=== PATIENT | female | born 1955 | race Asian ===

== ENCOUNTER 2020-10-20 07:48 | Outpatient (REF) | payer BC, SELFPAY ==
--- NOTE | 2020-10-23 11:46 | MHC.AU.P13 ---
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 Does patient feel they have a hearing loss?: Yes If Yes, Which Ear?: Both Ears When Was Hearing Difficulty First Noticed?: Approximately one year ago Has hearing been tested previously?: No Hearing Handicap Inventory: HHIE SCORE: 4 Based on HHIE score, patient has: No perceived hearing handicap Ear History: Family History of Hearing Loss?: Yes: Father Medical History: Medical History: Thyroid Disease Medication List: Levothyroxine, Simvastatin, Vitamin B-12, Vitamin D3 Otoscopy: Right Ear: Unremarkable Left Ear: Unremarkable Tympanometry: Tympanometry performed due to: To assess integrity of the middle ear system Right Ear: Normal Middle Ear System (Type A) Left Ear: Normal Middle Ear System (Type A) Otoacoustic Emissions Frequency Range Used: 1.6-8 kHz Right Ear Results: Absent Emissions Analysis: Reduced/Absent emissions suggest cochlear dysfunction Left Ear Results: Reduced at 1600 Hz Absent 9891-3117 Hz Analysis: Reduced/Absent emissions suggest cochlear dysfunction Hearing Evaluation: Transducer(s) Used: Insert Earphones Bone Conduction Method: Conventional Audiometry Stimuli Used: Pure Tones Right Ear: Description of Hearing: Normal hearing thresholds at 250 and 500 Hz dropping to a moderate high frequency sensorineural hearing loss Left Ear: Description of Hearing: Normal hearing thresholds at 250 and 500 Hz dropping to a moderate high frequency sensorineural hearing loss Speech Recognition Threshold (SRT): Method Used: Monitored Live Voice Stimuli Used: Spondee Words Right Ear: 20 dB HL Left Ear: 20 dB HL Word Discrimination: Method: Recorded Lists Word Lists Used: NU-6 Right Ear: 75% at 60 dB HL Left Ear: 75% at 60 dB HL Comparison: Compared to the most recent evaluation: N/A Recommendations: Audiological re-evaluation in one year. Trial with amplification is recommended. Patient does not feel they are ready for amplification at this time. Discussed some communication strategies to use when needed. Sending a reminder card for one year audiologic re-evaluation to monitor. Diagnosis: Primary Diagnosis: H90.3 Bilateral Sensorineural Hearing Loss Services Performed: Comprehensive Audiological Evaluation (CPT 34463) Diagnostic Otoacoustic Emissions (CPT 60113, 26+TC) Tympanometry (CPT 71786) Signature: Provider: Eleonora Murphy, CCC-A
== END 2020-10-20 07:49 | disposition home or self-care (01) ==
LOC: HO.SH 07:48
PROVIDERS: Visit Provider Internal Medicine
DX: H90.3 Sensorineural hearing loss, bilateral (principal)
CPT/HCPCS: 92557; 92567; 92588

== ENCOUNTER 2021-01-05 06:55 | Day surgery (SDC) | payer BC, SELFPAY ==
[2021-01-01 10:01] VITALS: BMI 26.9
--- NOTE | 2021-01-03 12:16 | P.CONAN_ITS ---
Documented by User: Sandhya Preston 01/03/21 12:17 HPI - Anesthesia Eval Consult details Narrative: 65yo F for Colonoscopy [facility] Past Medical History Medical History Elevated cholesterol Thyroid disease Surgical History Surgical History H/O colonoscopy Social History Social History Smoking Status: Never smoker Use of substances other than those prescribed or required for medical reasons: No Are you DNR?: No Advance Directives: No Advance Directives Information Provided: Yes Meds Allergies Allergy/AdvReac Type Severity Reaction Status Date / Time No Known Allergies Allergy Verified 01/01/21 10:00 Home Medications Medication Instructions Recorded Confirmed Last Taken Type levothyroxine [Euthyrox] 100 mcg PO DAILY 01/01/21 01/01/21 01/05/21 History simvastatin 20 mg PO BEDTIME 01/01/21 01/01/21 Unknown History Exam Exam Date and Time: January 03, 2021 1216 Height,Weight and Vital Signs: Height 5 ft 7 in Weight 78.018 kg Assessment and Plan Assessment Anesthesia Assessment: Chart Reviewed Documented by User: Gómez Renteria 01/05/21 08:04 [facility] Past Medical History Medical History Elevated cholesterol Thyroid disease Surgical History Surgical History H/O colonoscopy Social History Social History Smoking Status: Never smoker Use of substances other than those prescribed or required for medical reasons: No Are you DNR?: No Advance Directives: No Advance Directives Information Provided: Yes Meds Allergies Allergy/AdvReac Type Severity Reaction Status Date / Time No Known Allergies Allergy Verified 01/01/21 10:00 Home Medications Medication Instructions Recorded Confirmed Last Taken Type levothyroxine [Euthyrox] 100 mcg PO DAILY 01/01/21 01/01/21 01/05/21 History simvastatin 20 mg PO BEDTIME 01/01/21 01/01/21 Unknown History Exam Airway Mallampati Class: II TM Dist: >3cm Neck ROM: Full Loose/Missing/Broken Teeth: No (Poor dentition) Heart: rrr +s1s2 Lungs: cta b/l Assessment and Plan Assessment Anesthesia Assessment: Anesthesia Plan Discussed, PAT Visit and Chart Reviewed Final Anesthetic Review NPO: Yes ASA Class: II Final Preanesthetic Review: No Changes in Pt Med Stat, Meds/Allgs Chart Reviewed, Consent Obtained/Reviewed and Anes Risks/Benef Reviewed Patient Risk: Low Procedure Risk: Low Assessment/Block/Sedation in SS: Assess/Block/Sedation-SS Anesthetic Plan Anesthetic Plan: MAC: and Agree w/ Assess. and Plan Disposition: Standard PACU
[2021-01-05 07:22] VITALS: BP 104/85; PULSE 80; RESP 16; TEMP 36.7; O2SAT 95
[2021-01-05] MEDS: Lactated Ringers 1,000 ML 100 ML IVCONT (07:33)
[2021-01-05 09:38] VITALS: BP 80/44; PULSE 70; RESP 16; TEMP 36.2; O2SAT 97
--- NOTE | 2021-01-05 09:38 | P.BOP_ITS ---
Brief Operative Note Date of Service: 01/05/21 Pre-op diagnosis: Screening Post-op diagnosis: other (Colon polyp) Procedure: Colonoscopy to the cecum and TI with biopsy and removal of polyp Surgeon: Kishore Frias Anesthesia: MAC Was an Controls Technician used for this Procedure?: No Estimated blood loss (mL): 3.0 Pathology: other (A. Polyp at 50cm) Condition: stable Disposition: PACU
[2021-01-05 09:53] VITALS: BP 115/70; PULSE 64; RESP 18; O2SAT 99
--- NOTE | 2021-01-05 11:03 | OP_ITS ---
SURGEON: Kishore Frias MD INDICATIONS: The patient presents for evaluation of colorectal cancer screening. Full consent has been obtained from her for this, including risks of bleeding and perforation. PREOPERATIVE DIAGNOSIS: Colorectal cancer screening. POSTOPERATIVE DIAGNOSIS: PROCEDURE PERFORMED: Colonoscopy to the cecum and terminal ileum with biopsy and removal of polyp. ESTIMATED BLOOD LOSS: COMPLICATIONS: ANESTHESIA: Monitored anesthesia care. ASSISTANTS: SPECIMENS: POSTOPERATIVE DIAGNOSES: Colorectal cancer screening, small colon polyp, mild diverticulosis, internal hemorrhoids. DESCRIPTION OF PROCEDURE: The patient was placed in the left lateral decubitus position. The digital rectal exam revealed no abnormalities. The Olympus video pediatric colonoscope was entered into the rectum and advanced easily to the cecum. Once in the cecum, I did identify normal-appearing cecal pouch with appendiceal orifice and a normal-appearing ileocecal valve. The terminal ileum was cannulated and appeared normal. The scope was withdrawn back in the colon. The entire cecum and ileocecal valve appeared normal. The scope was slowly withdrawn assessing all mucosal surfaces carefully. Preparation was excellent. At 50 cm, was an approximately 4 mm polyp, which was biopsied and completely removed with cold biopsy forceps. I did not visualize any other polyps, colitis, nor angiodysplasia. There was a mild amount of sigmoid diverticulosis. In the rectum, scope was retroflexed visualizing internal hemorrhoids, but no other pathology. The rectal mucosa appeared normal. The scope was straightened out and withdrawn from the patient. She tolerated the procedure well and was returned to the recovery area in stable condition. IMPRESSION: 1. Small colon polyp, status post biopsy and removal. 2. Mild diverticulosis. 3. Small internal hemorrhoids. PLAN: The results of the biopsies will be checked. If this is a tubular adenoma, I would recommend a followup colonoscopy in 5 years. If it is only hyperplastic, I would recommend a followup colonoscopy in 10 years. MD MIGUELITO Kilpatrick/CHENGL / [id number]
== END 2021-01-05 11:00 | disposition home or self-care (01) ==
PROVIDERS: PCP Internal Medicine; Visit Provider Internal Medicine
PROC: 0DJD8ZZ Inspection of Lower Intestinal Tract, Via Natural or Artificial Opening Endoscopic (ICD-10-PCS; CPT 45378; principal; 2021-01-05 08:20)
DX: Z12.11 Encounter for screening for malignant neoplasm of colon (principal); K51.40 Inflammatory polyps of colon without complications; K57.30 Diverticulosis of large intestine without perforation or abscess without bleeding; K64.8 Other hemorrhoids; Z79.899 Other long term (current) drug therapy
CPT/HCPCS: 45380; 88305

== ENCOUNTER 2021-04-26 14:11 | Outpatient (REF) | payer BC, SELFPAY ==
--- NOTE | ~2021-04-26 | MM_ITS ---
EXAMINATION: MM SCREENING DIGITAL BREAST TOMOSYNTHESIS, BILATERAL CLINICAL INFORMATION: Screening. Asymptomatic. The lifetime risk of breast cancer based on the Tyrer-Cuzick Model is 4.1%. COMPARISON: Mammography: April 21, 2020 and studies dating back to January 10, 2010 TECHNIQUE: Digital breast tomosynthesis is performed in both the craniocaudal and mediolateral oblique views along with computer-aided detection (CAD). Synthesized 2D images are generated from the tomosynthesis. FINDINGS: The breasts are extremely dense, which lowers the sensitivity of mammography (ACR BI-RADS breast composition Category d). There are no significant masses, abnormal calcifications, or other abnormalities. MM/MM tomosynthesis screening BI IMPRESSION: There are no significant changes from prior study. ASSESSMENT: BI-RADS 1: Negative RECOMMENDATION: Routine annual mammography screening. This patient's information was entered into a reminder system with a target due date for their next mammogram.
== END 2021-04-26 14:12 | disposition home or self-care (01) ==
LOC: HO.MAMMO 14:11
PROVIDERS: PCP Internal Medicine; Visit Provider Internal Medicine
DX: Z12.31 Encounter for screening mammogram for malignant neoplasm of breast (principal)
CPT/HCPCS: 77063; 77067

== ENCOUNTER 2022-01-29 08:23 | Outpatient (REF) | payer BC, SELFPAY ==
--- NOTE | 2022-01-29 14:20 | MHC.AU.ANR ---
Adult Audiological Evaluation Date of Visit: 01/29/22 Reason for Appointment: Audiological re-evaluation to determine if there has been a change in hearing sensitivity. She has a known bilateral, sensorineural hearing loss, and though hearing aids were recommended, she does not feel she is ready for hearing aid use yet. 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 She notes that in Spring 2020, shortly following her last visit here, she began to have a blocked sensation in her left ear. She had it treated by ENT with medication and it was determined that allergies were the likely cause. This feeling of blockage has since cleared up and has not returned. Does patient feel they have a hearing loss?: Yes If Yes, Which Ear?: Both Ears When Was Hearing Difficulty First Noticed?: ~2 years ago Has hearing been tested previously?: Yes [place] [facility] [place] hearing from 250-500 Hz, dropping to a moderate high-frequency sensorineural hearing loss. Ear History: Family History of Hearing Loss?: Yes: Father Medical History: Medical History: Thyroid Disease Medication List: Simvastatin, Levoxyl, Cyanocobalamin, Vitamin D Otoscopy: Right Ear: Unremarkable Left Ear: Unremarkable Tympanometry: Tympanometry performed due to: To assess integrity of the middle ear system Right Ear: Normal Middle Ear System (Type A) Left Ear: Normal Middle Ear System (Type A) Hearing Evaluation: Transducer(s) Used: Insert Earphones, Bone Conduction Method: Conventional Audiometry Stimuli Used: Pure Tones Right Ear: Description of Hearing: Normal hearing from 250-500 Hz, sloping to a mild to moderate sensorineural hearing loss from 750-8000 Hz. Left Ear: Description of Hearing: Normal hearing from 250-500 Hz, sloping to a mild to moderately-severe sensorineural hearing loss from 750-8000 Hz. Speech Recognition Threshold (SRT): Method Used: Monitored Live Voice Stimuli Used: Spondee Words Right Ear: 20 dBHL Left Ear: 20 dBHL Word Discrimination: Method: Recorded Lists Word Lists Used: NU-6 Right Ear: 84% at 65 dBHL Left Ear: 80% at 65 dBHL Comparison: Compared to the most recent evaluation: Threshold worsened by 15 dBHL at 2000 Hz in the left ear. All other thresholds remain overall stable. Recommendations: Audiological re-evaluation in one year. Trial with amplification is recommended. Patient does not feel they are ready for amplification at this time. Diagnosis: Primary Diagnosis: H90.3 Bilateral Sensorineural Hearing Loss Services Performed: Services Performed: Comprehensive Audiological Evaluation (CPT 01225) Tympanometry (CPT 81391) Signature: Provider: Eleonora Ivory, CCC-A
== END 2022-01-29 08:24 | disposition home or self-care (01) ==
LOC: HO.SH 08:23
PROVIDERS: Visit Provider Internal Medicine
DX: H90.3 Sensorineural hearing loss, bilateral (principal)
CPT/HCPCS: 92557; 92567

== ENCOUNTER 2022-05-11 07:42 | Outpatient (REF) | payer BC, SELFPAY ==
--- NOTE | ~2022-05-11 | MM_ITS ---
EXAMINATION: MM SCREENING DIGITAL BREAST TOMOSYNTHESIS, BILATERAL CLINICAL INFORMATION: Screening. Asymptomatic. The lifetime risk of breast cancer based on the Tyrer-Cuzick Model is 5%. COMPARISON: Mammography: 04/26/2021, 04/21/2020, 04/16/2019 TECHNIQUE: Digital breast tomosynthesis is performed in both the craniocaudal and mediolateral oblique views along with computer-aided detection (CAD). Synthesized 2D images are generated from the tomosynthesis. FINDINGS: The breasts are heterogeneously dense, which may obscure small masses (ACR BI-RADS breast composition Category c). There are no significant masses, abnormal calcifications, or other abnormalities. No developing density or architectural abnormality. 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 Low right axillary tail node again noted as incidental finding. Skin contours are smooth. MM/MM tomosynthesis screening BI IMPRESSION: No mammographic evidence of malignancy. ASSESSMENT: BI-RADS 2: Benign RECOMMENDATION: Routine annual mammography screening. This patient's information was entered into a reminder system with a target due date for their next mammogram.
== END 2022-05-11 07:43 | disposition home or self-care (01) ==
LOC: HO.MAMMO 07:42
PROVIDERS: Visit Provider Internal Medicine
DX: Z12.31 Encounter for screening mammogram for malignant neoplasm of breast (principal)
CPT/HCPCS: 77063; 77067

== ENCOUNTER 2023-01-25 11:38 | Emergency (ER) | payer BC, SELFPAY ==
--- NOTE | ~2023-01-25 | CT_ITS ---
EXAMINATION: CT ABDOMEN AND PELVIS WITHOUT CONTRAST CLINICAL INFORMATION: History of stones. Left flank pain. COMPARISON: None available. TECHNIQUE: Multidetector volumetric imaging was performed from the superior aspect of the liver through the pubic symphysis. Sagittal and coronal reformatted images were obtained on the technologist's workstation. This CT examination was performed using dose optimization techniques as appropriate, variously including the following: *Automated exposure control *Adjustment of mA and/or kV according to patient size (this includes techniques or standardized protocols for targeted exams where dose is matched to indication/reason for exam; i.e. extremities or head) *Use of iterative reconstruction technique DLP: 567 mGy-cm FINDINGS: LUNG BASES: The visualized lung bases are unremarkable. Heart size is normal. No pericardial or pleural effusion seen. There is minimal bilateral posterior pleural thickening. LIVER, GALLBLADDER, AND BILIARY TREE: The liver is normal in size, shape, and attenuation. No focal hepatic lesion or biliary ductal dilatation is present. The gallbladder is not visualized. PANCREAS: Unremarkable. SPLEEN: Unremarkable. ADRENAL GLANDS: Unremarkable. KIDNEYS AND URETERS: The kidneys are normal in size, shape, and attenuation. There are 2 mm nonobstructive radiopaque calculi upper and midpole left kidney without caliectasis or hydronephrosis. No radiopaque calculi seen in the right kidney. There is a 5 mm nonobstructive radiopaque calculi left proximal ureter with mild hydronephrosis and peripelvic stranding. BLADDER: Unremarkable. GASTROINTESTINAL TRACT: There is scattered stool and gas seen throughout the colon without significant distention. The small bowel loops are normal caliber. Appendix is not visualized. No free air or free fluid seen. Appendix is normal caliber. No inflammatory process or free fluid seen. ABDOMINAL WALL: No significant hernia is appreciated. LYMPH NODES: Normal. VASCULAR: Unremarkable. PELVIC VISCERA: The uterus is retroverted. There is no adnexal mass or free fluid or free air. No abnormal lymphadenopathy.. OSSEOUS STRUCTURES: No aggressive lytic or sclerotic process seen. CT/CT abdomen pelvis wo IV con IMPRESSION: 1. 5 mm nonobstructive radiopaque calculi left proximal ureter with mild hydronephrosis and peripelvic stranding. 2. Nonobstructive 2 mm radiopaque calculi upper and midpole left kidney. 3. Mild constipation. Fleischner guidelines were followed.
[2023-01-25 11:58] VITALS: BP 133/83; PULSE 61; RESP 20; TEMP 36.9; O2SAT 99; BMI 26.6
--- OUTSIDE RECORDS SUMMARY | 2023-01-25 12:17 | XMS_ITS ---
Author Name Ruben Kishore Address [address], [place] [id number] Organization Kishore Miranda DO [facility] Address [address], [place] [id number] Care Team Providers Care Hand Cloth Examiner Name Role Phone Ruben Kishore [facility] [phone] PROBLEMS Type Condition ICD9-CM Code [id number] Code Onset Dates Condition Status SNOMED Code Problem Osteoporosis M81.0 Active 76190695 Problem Hypercholesterolemia E78.00 Active 136 46585 Problem Acquired hypothyroidism E03.9 Active 218139299 Problem Vitamin B 12 deficiency E53.8 Active [id number] ALLERGIES No Known Allergies ENCOUNTERS Encounter Location Date Diagnosis Kishore Miranda DO, [address] [id number] December, Encounter for general adult medical examination without abnormal findings Z00.00 ; Hypercholesterolemia E78.00 ; Acquired hypothyroidism E03.9 ; Osteoporosis M81.0 and Vitamin B 12 deficiency E53.8 Kishore Miranda DO, [address] [id number] Oct, Hypercholesterolemia E78.00 ; Acquired hypothyroidism E03.9 ; Osteoporosis M81.0 and Vitamin B 12 deficiency E53.8 Kishore Miranda DO, [address] [id number] Oct, Need for influenza vaccinati on Z23 Kishore Miranda DO, [address] [id number] Oct, Encounter for general adult medical examination without abnormal findings Z00.00 ; Hypercholesterolemia E78.00 ; Acquired hypothyroidism E03.9 ; Osteoporosis M81.0 and Vitamin B 12 deficiency E53.8 Kishore Miranda DO, [address] [id number] Nov, Kishore Miranda DO, [address] [id number] Oct, Hypercholesterolemia E78.00 Kishore Miranda DO, [address] [id number] Oct, Hypercholesterolemia E78.00 Kishore Miranda DO, [address] [id number] Oct, Encounter for general adult medical examination without abnormal findings Z00.00 ; Hypercholesterolemia E78.00 ; Acquired hypothyroidism E03.9 ; Osteoporosis M81.0 and Vitamin B 12 deficiency E53.8 Kishore Miranda DO, [address] [id number] Aug, Kishore Miranda DO [address] [place] [id number] Aug, Kishore Miranda DO, [address] [id number] Jul, Need for influenza vaccinati on Z23 Kishore Miranda DO, [address] [id number] Oct, Kishore Miranda DO, [address] [id number] Oct, Hypercholesterolemia E78.00 Kishore Miranda DO, [address] [id number] Oct, Hypercholesterolemia E78.00 Kishore Miranda DO, [address] [id number] Sep, Need for influenza vaccinati on Z23 Kishore Miranda DO, [address] [id number] Aug, Kishore Miranda DO, [address] [id number] Aug, Encounter for general adult medical examination without abnormal findings Z00.00 ; Hypercholesterolemia E78.00 ; Acquired hypothyroidism E03.9 ; Osteoporosis M81.0 and Vitamin B 12 deficiency E53.8 Kishore Miranda DO, [address] [id number] Nov, Acquired hypothyroidism E03. 9 Kishore Miranda DO, [address] [id number] Sep, Need for influenza vaccinati on Z23 Kishore Miranda DO, [facility] [address], [place] [id number] Aug, Encounter for general adult medical examination without abnormal findings Z00.00 ; Hypercholesterolemia E78.0 ; Acquired hypothyroidism E03.9 ; Osteoporosis M81.0 and Vitamin B 12 deficiency E53.8 Kishore Miranda DO, [address] [id number] Aug, Hypercholesterolemia E78.0 Kishore Miranda DO, [address] [id number] Aug, Acquired hypothyroidism E03. 9 Kishore Miranda DO, [address] [id number] Aug, Need for influenza vaccinati on Z23 Kishore Miranda DO, [address] [id number] Aug, Encounter for general adult medical examination without abnormal findings Z00.00 ; Hypercholesterolemia E78.0 ; Acquired hypothyroidism E03.9 ; Osteoporosis M81.0 and Vitamin B 12 deficiency E53.8 Kishore Miranda DO, [address] [id number] Jan, Acquired hypothyroidism E03. 9 and Hypercholesterolemia E78.0 Kishore Miranda DO, [address] [id number] Jul, Encounter for general adult medical examination without abnormal findings Z00.00 ; Hypercholesterolemia E78.0 ; Acquired hypothyroidism E03.9 ; Vitamin B 12 deficiency E53.8 and Osteoporosis M81.0 Kishore Miranda DO [address] [id number] May, Acquired hypothyroidism E03. 9 ; Osteoporosis M81.0 and Vitamin B 12 deficiency E53.8 Kishore Miranda DO [address] [id number] Jan, Kishore Miranda DO [address] [id number] Jan, Kishore Miranda DO [address] [id number] Nov, Kishore Miranda DO [address] [id number] Oct, Acquired hypothyroidism E03. 9 ; Hypercholesterolemia E78.0 ; Osteoporosis M81.0 and Vitamin B 12 deficiency E53.8 Kishore Miranda DO, [address] [id number] Aug, Kishore Miranda DO, [address] [id number] Aug, Hypercholesterolemia E78.0 ; Acquired hypothyroidism E03.9 ; Osteoporosis M81.0 and Vitamin B 12 deficiency E53.8 Kishore Miranda DO, [address] [id number] Jun, Hypercholesterolemia E78.0 a nd Acquired hypothyroidism E03.9 Kishore Miranda DO, [address] [id number] Jan, Kishore Miranda DO, [address] [id number] Jan, Kishore Miranda DO, [address] [id number] May, Kishore Miranda DO [address] [id number] May, Kishore Miranda DO [address] [id number] May, Kishore Miranda DO, [address] [id number] Apr, Routine general medical examination at a health care facility V70.0 ; Hypothyroidism 244.9 ; Hypercholesterolemia 272.0 ; Neuropathy 355.9 and Renal lithiasis 592.0 Kishore Miranda DO, [address] [id number] Jan, Kishore Miranda DO [address] [id number] Jan, Hypothyroidism 244.9 and Hypercholesterolemia 272.0 Kishore Miranda DO, [address] [id number] December, Hypercholesterolemia 272.0 a nd Hypothyroidism 244.9 Kishore Miranda DO, [address] [id number] Sep, Internal hemorrhoids with ot her complication 455.2 IMMUNIZATIONS Vaccine Route Administration Date Status Influenza Quad IM Intramuscular October 30, 2021 Adminis tered COVID-19 Moderna Vaccine Unknown Apr 08, 2022 Adm inistered COVID-19 Moderna Vaccine Unknown February 07, 2021 Ad ministered COVID-19 Moderna Vaccine Unknown Aug 22, 2021 Adm inistered COVID-19 Moderna Vaccine Unknown January 10, 2021 Adm inistered H1N1 Unknown December 29, 2009 Administered PCV 13 Unknown Oct 04, 2020 Administered Influenza Quad IM Intramuscular Jul 11, 2020 Administe red Influenza Quad IM Intramuscular Sep 07, 2019 Administe red Influenza Quad IM Intramuscular Sep 08, 2018 Administe red Influenza Quad IM Intramuscular Aug 12, 2017 Administe red Influenza Quad IM Intramuscular Jul 05, 2016 Administe red Td (adult) Unknown Jun 24, 2001 Administered MMR Unknown Jun 24, 2001 Administered SOCIAL HISTORY Qualifiers Date Never Smoker REASON FOR REFERRAL FUNCTIONAL STATUS PLAN OF CARE Activity Details VITAL SIGNS Weight 173 lbs 2023-01-01 Weight 177 lbs 2021-10-30 Weight 160 lbs 2021-10-29 Weight 166 lbs 2020-10-03 Weight 169 lbs 2019-08-20 Weight 172 lbs 2018-08-14 Weight 167 lbs 2017-08-01 Weight 165 lbs 2016-07-05 Weight 171 lbs 2015-11-29 Weight 168 lbs 2015-08-04 Weight 169 lbs 2015-06-30 Weight 162 lbs 2014-04-22 Weight 156 lbs 2012-01-20 Weight 159 lbs 2011-09-06 Height 66.75 in 2023-01-01 Height 66.75 in 2021-10-30 Height 67.0 in 2021-10-29 Height 66.0 in 2020-10-03 Height 66.0 in 2019-08-20 Height 66.25 in 2018-08-14 Height 66.25 in 2017-08-01 Height 66.25 in 2016-07-05 Height 66.25 in 2015-11-29 Height 66.25 in 2015-08-04 Height 66.25 in 2015-06-30 Height 66.25 in 2014-04-22 Height 66.25 in 2012-01-20 Height 67 in 2011-09-06 BMI 27.30 kg/m2 2023-01-01 BMI 27.93 kg/m2 2021-10-30 BMI 25.06 kg/m2 2021-10-29 BMI 26.79 kg/m2 2020-10-03 BMI 27.27 kg/m2 2019-08-20 BMI 27.55 kg/m2 2018-08-14 BMI 26.75 kg/m2 2017-08-01 BMI 26.43 kg/m2 2016-07-05 BMI 27.39 kg/m2 2015-11-29 BMI 26.91 kg/m2 2015-08-04 BMI 27.07 kg/m2 2015-06-30 BMI 25.95 kg/m2 2014-04-22 BMI 24.99 kg/m2 2012-01-20 BMI 24.90 kg/m2 2011-09-06 Temperature 96.6 degrees Fahrenheit Blood pressure systolic 122 mm Hg Blood pressure diastolic 76 mm Hg 2022-12 MEDICATIONS Medication Instructions Dosage Frequency Start Date End Date Duration Status Levothyroxine Sodium 100 MCG Orally Once a day 1 tablet in the morning on an empty stomach, 2 on friday 24h Active Simvastatin 40 MG Orally Once a day 1 tablet in the evening 24h Active Cyanocobalamin 1000 MCG Orally Once a day 1 tablet 24h Aug, Active Vitamin D 50 MCG (1999 UT) Orally Once a day 1 capsule 24h Aug, Active PROCEDURES Procedure Date Ordered Result Body Site FLU VACC 4 JADIEL 3 YRS PLUS IM Jul 05, 2016 Imms Admin October 30, 2021 URINE-NO MICRO January 20, 2012 Imms Admin Jul 05, 2016 FLU VACC 4 JADIEL 3 YRS PLUS IM Aug 12, 2017 FLU VACC 4 JADIEL 3 YRS PLUS IM Sep 07, 2019 Imms Admin Jul 11, 2020 FLU VACC 4 JADIEL 3 YRS PLUS IM October 30, 2021 FLU VACC 4 JADIEL 3 YRS PLUS IM Jul 11, 2020 Imms Admin Aug 12, 2017 Imms Admin Sep 07, 2019 Imms Admin Sep 08, 2018 FLU VACC 4 JADIEL 3 YRS PLUS IM Sep 08, 2018 RESULTS Name Result Date Reference Range MM tomosynthesis screening BI 2022-05-11 MM tomosynthesis screening BI 2021-04-26 Colonoscopy Pathology 2021-01-05 MAMMOGRAM DIGITAL BILATERAL SCREEN G0202 2020-04-24 LIPOPROTEIN FRACTIONATION (LIPID PANEL) 2 CHOLESTEROL 211 TRIGLYCERIDE 217 HDL 44 LDL CALCULATED 124 CBC w DIFF 2019-09-07 WBC 6.6 4.8-10.8 ABSOLUTE NEUTROPHIL COUNT 2.6 2. 2-7.9 RBC 4.15 4.20-5.50 HEMOGLOBIN 13.7 12.0-16.0 HEMATOCRIT 39.7 37-47 MCV 95.8 80-98 MCH 33.0 27.0-33.0 MCHC 34.5 31.0-35.0 PLATELET COUNT 273 160-400 RDW 11.9 11.0-16.0 NEUTROPHILS 39.5 45-73 LYMPHOCYTES 50.0 20-40 MONOCYTES 6.5 2-11 EOSINOPHILS 2.6 0-4 BASOPHILS 1.4 0-2 PROFILE, FASTING 2019-09-07 NA 141 135-145 K 4.3 3.3-5.1 CL 104 96-108 CO2 27 22-29 ANION GAP 14 12-20 FASTING BLOOD SUGAR 91 60-99 BUN 12 9-16 CREATININE 0.79 0.5-1.4 ESTIMATED GFR >60 PROTEIN, TOTAL 7.4 6.5-8.0 ALBUMIN 4.4 3.5-5.0 BILIRUBIN, TOTAL 1.4 0.0-1.0 CALCIUM 9.6 8.4-10.2 ALK. PHOS. 64 39-117 GOT 20 5-31 GPT 24 0-31 TSH (THYROID STIMULATING HORMONE) 2019-09 TSH 1.04 0.32-4.0 VITAMIN D 25-OH TOTAL 2019-09-07 VITAMIN D 25-OH TOTAL 27.3 >30 BONE DENSITY DEXA 2019-09-08 MAMMOGRAM DIGITAL BILATERAL SCREEN G0202 2019-04-19 LIPOPROTEIN FRACTIONATION (LIPID PANEL) 2 CHOLESTEROL 174 TRIGLYCERIDE 198 HDL 36 LDL CALCULATED 99 CBC w DIFF 2018-09-08 WBC 7.9 4.8-10.8 ABSOLUTE NEUTROPHIL COUNT 4.3 2. 2-7.9 RBC 4.15 4.20-5.50 HEMOGLOBIN 13.5 12.0-16.0 HEMATOCRIT 40.2 37-47 MCV 96.9 80-98 MCH 32.4 27.0-33.0 MCHC 33.5 31.0-35.0 PLATELET COUNT 261 160-400 RDW 11.6 11.0-16.0 NEUTROPHILS 54.4 45-73 LYMPHOCYTES 35.6 20-40 MONOCYTES 7.3 2-11 EOSINOPHILS 1.7 0-4 BASOPHILS 1.0 0-2 PROFILE, FASTING 2018-09-08 NA 138 135-145 K 4.1 3.3-5.1 CL 105 96-108 CO2 26 22-29 ANION GAP 11 12-20 FASTING BLOOD SUGAR 92 60-99 BUN 18 9-16 CREATININE 0.79 0.5-1.4 ESTIMATED GFR >60 PROTEIN, TOTAL 7.7 6.5-8.0 ALBUMIN 4.4 3.5-5.0 BILIRUBIN, TOTAL 1.4 0.0-1.0 CALCIUM 9.4 8.4-10.2 ALK. PHOS. 75 39-117 GOT 21 5-31 GPT 29 0-31 TSH (THYROID STIMULATING HORMONE) 2018-09 TSH 0.45 0.32-4.0 VITAMIN B12 AND FOLATE 2018-09-08 B12 1016 200-900 FOLATE 9.2 >OR = 4.0 VITAMIN D 25-OH TOTAL 2018-09-08 VITAMIN D 25-OH TOTAL 29.1 >30 LIPOPROTEIN FRACTIONATION (LIPID PANEL) 2 CHOLESTEROL 158 TRIGLYCERIDE 194 HDL 33 LDL CALCULATED 87 CBC w DIFF 2017-08-12 WBC 6.5 4.8-10.8 ABSOLUTE NEUTROPHIL COUNT 2.8 2. 2-7.9 RBC 4.21 4.20-5.50 HEMOGLOBIN 13.3 12.0-16.0 HEMATOCRIT 40.4 37-47 MCV 96.0 80-98 MCH 31.7 27.0-33.0 MCHC 33.0 31.0-35.0 PLATELET COUNT 279 160-400 RDW 11.5 11.0-16.0 NEUTROPHILS 43.0 45-73 LYMPHOCYTES 46.4 20-40 MONOCYTES 6.9 2-11 EOSINOPHILS 2.9 0-4 BASOPHILS 0.9 0-2 PROFILE, FASTING 2017-08-12 NA 141 135-145 K 4.2 3.3-5.1 CL 105 96-108 CO2 26 22-29 ANION GAP 14 12-20 FASTING BLOOD SUGAR 95 60-99 BUN 16 9-16 CREATININE 0.75 0.5-1.4 ESTIMATED GFR >60 PROTEIN, TOTAL 7.2 6.5-8.0 ALBUMIN 4.2 3.5-5.0 BILIRUBIN, TOTAL 1.2 0.0-1.0 CALCIUM 9.5 8.4-10.2 ALK. PHOS. 73 39-117 GOT 23 5-31 GPT 30 0-31 TSH (THYROID STIMULATING HORMONE) 2017-08 TSH 0.02 0.32-4.0 VITAMIN B12 AND FOLATE 2017-08-12 B12 932 200-900 FOLATE 8.7 >OR = 4.0 VITAMIN D 25-OH TOTAL 2017-08-12 VITAMIN D 25-OH TOTAL 32.1 >30 MAMMOGRAM DIGITAL BILATERAL SCREEN G0202 2017-11-10 MAMMOGRAM DIGITAL BILATERAL SCREEN G0202 2016-08-16 TSH (THYROID STIMULATING HORMONE) 2016-07 TSH 1.78 0.32-4.0 VITAMIN B12 AND FOLATE 2016-07-02 B12 350 200-900 FOLATE 9.3 >OR = 4.0 VITAMIN D 25-OH TOTAL 2016-07-02 VITAMIN D 25-OH TOTAL 31.2 >30 LIPOPROTEIN FRACTIONATION (LIPID PANEL) 2 CHOLESTEROL 190 TRIGLYCERIDE 222 HDL 36 LDL 110 PROFILE, FASTING 2015-11-21 NA 139 135-145 K 4.0 3.3-5.1 CL 104 96-108 CO2 27 22-29 ANION GAP 12 20 FASTING BLOOD SUGAR 99 60-99 BUN 14 9-16 CREATININE 0.8 0.5-1.4 ESTIMATED GFR >60 PROTEIN, TOTAL 7.7 6.5-8.0 ALBUMIN 4.7 3.5-5.0 BILIRUBIN, TOTAL 1.4 0.0-1.0 CALCIUM 9.8 8.4-10.2 ALK. PHOS. 72 39-117 GOT 25 5-31 GPT 28 0-31 TSH (THYROID STIMULATING HORMONE) 2015-10 TSH 1.51 0.32-4.0 VITAMIN B12 AND FOLATE 2015-11-21 B12 938 200-900 FOLATE 13.2 >OR = 4.0 VITAMIN D 25-OH TOTAL 2015-11-21 VITAMIN D 25-OH TOTAL 38.1 >30 LIPOPROTEIN FRACTIONATION (LIPID PANEL) 2 CHOLESTEROL 156 TRIGLYCERIDE 226 HDL 34 LDL 77 CBC w DIFF 2015-07-19 WBC 6.0 4.8-10.8 ABSOLUTE NEUTROPHIL COUNT 2.8 2. 2-7.9 RBC 4.13 4.20-5.50 HEMOGLOBIN 12.9 12.0-16.0 HEMATOCRIT 39.0 37-47 MCV 94.4 80-98 MCH 31.3 27.0-33.0 MCHC 33.2 31.0-35.0 PLATELET COUNT 275 160-400 RDW 11.8 11.0-16.0 NEUTROPHILS 45.9 45-73 LYMPHOCYTES 42.1 20-40 MONOCYTES 8.5 2-11 EOSINOPHILS 2.2 0-4 BASOPHILS 1.2 0-2 PROFILE, FASTING 2015-07-19 NA 138 135-145 K 4.4 3.3-5.1 CL 104 96-108 CO2 26 22-29 ANION GAP 12 1220 FASTING BLOOD SUGAR 102 60-99 BUN 10 9-16 CREATININE 0.7 0.5-1.4 ESTIMATED GFR >60 PROTEIN, TOTAL 6.8 6.5-8.0 ALBUMIN 4.0 3.5-5.0 BILIRUBIN, TOTAL 1.1 0.0-1.0 CALCIUM 9.5 8.4-10.2 ALK. PHOS. 71 39-117 GOT 28 5-31 GPT 32 0-31 TSH (THYROID STIMULATING HORMONE) 2015-07 TSH 0.11 0.32-4.0 VITAMIN B1, PYROPHOSPHATE 2015-07-19 VITAMIN B1, PYROPHOSPHATE 10 8- 30 VITAMIN B12 AND FOLATE 2015-07-19 B12 174 200-900 FOLATE 12.1 >OR = 4.0 VITAMIN D 25-OH TOTAL 2015-07-19 VITAMIN D 25-OH TOTAL 24.7 >30 BONE DENSITY DEXA 2015-07-07 MAMMOGRAM DIGITAL BILATERAL SCREEN G0202 2015-05-18 LIPOPROTEIN FRACTIONATION (LIPID PANEL) 2 CHOLESTEROL 185 TRIGLYCERIDE 275 HDL 42 LDL 88 CBC w DIFF 2014-06-14 WBC 6.7 4.8-10.8 ABSOLUTE NEUTROPHIL COUNT 3.1 2. 2-7.9 RBC 4.55 4.20-5.50 HEMOGLOBIN 14.5 12.0-16.0 HEMATOCRIT 42.6 37-47 MCV 93.6 80-98 MCH 31.8 27.0-33.0 MCHC 34.0 31.0-35.0 PLATELET COUNT 284 160-400 RDW 11.9 11.0-16.0 NEUTROPHILS 46.4 45-73 LYMPHOCYTES 42.7 20-40 MONOCYTES 8.4 2-11 EOSINOPHILS 1.8 0-4 BASOPHILS 0.8 0-2 PROFILE, FASTING 2014-06-14 NA 138 135-145 K 4.2 3.3-5.1 CL 104 96-108 CO2 26 22-29 ANION GAP 08-20 FASTING BLOOD SUGAR 98 60-99 BUN 13 9-16 CREATININE 0.71 0.5-1.4 ESTIMATED GFR >60 PROTEIN, TOTAL 7.3 6.5-8.0 ALBUMIN 4.2 3.5-5.0 BILIRUBIN, TOTAL 1.4 0.0-1.0 CALCIUM 9.5 8.4-10.2 ALK. PHOS. 73 39-117 GOT 22 <3-31 GPT 27 <6-31 TSH (THYROID STIMULATING HORMONE) 2014-06 TSH 0.01 0.32-4.0 URINALYSIS + MICROSCOPIC 2014-06-14 COLOR YELLOW APPEARANCE,(UA) CLEAR SPECIFIC GRAVITY >= 1.030 1.005-1.025 LEUKOCYTES NEG NEG NITRITE NEG NEG PROTEIN,QUALITATIVE NEG NEG - TR ANTELMO PH 5.5 5.0-8.0 URINE BLOOD TRACE NEG KETONES NEG NEG GLUCOSE NEG NEG MICROSCOPIC WBC 1-4 0-4 MICROSCOPIC RBC 0-2 0 EPITHELIAL CELLS 1+ BACTERIA NONE RENAL EPITHELIAL CELLS NONE CASTS NONE MUCUS 3+ VITAMIN D 25-OH TOTAL 2014-06-14 VITAMIN D 25-OH TOTAL 23.5 >30 Nerve Conduction Study MAMMOGRAM DIGITAL BILATERAL SCREEN G0202 2014-03-29 MAMMOGRAM, SCREENING MAMMOGRAM DIGITAL BILATERAL SCREEN G0202 2012-10-19 Urine Dipstick Urine-Color Appearance WBC Esterase negative Nitrite-Urine negative Urobilinogen,Meghan-Qn normal 0.2 Protein negative pH 5.0 Occult Blood negative Specific [place] 1.010 Ketones negative Bilirubin negative Glucose negative MAMMOGRAM, SCREENING Colonoscopy REASON FOR VISIT 6 month f/u, physical, annual visit, Message, influenza vaccination, physical, annual visit, Message, Refills, Refills, Physical, annual visit, physical, Cancel Appointment Request, Reschedule Appointment Request, influenza vaccination, Message, Refills, Refills, flu vaccine, influenza vaccination, Message to self, physical, annual visit, Refills, flu vaccine, influenza vaccination, annual visit,Refills, physical, Message, flu vaccination, annual visit, physical, Refills, physical, annual visit, Message, Refills, Refill, Refill, Follow up hypothyroidism, Refills, 1 month f/u, Follow up Hyperc holesterolemia, hypothyroidism, 1 month f/u, Follow up hypothyroidism, hypercholesterolemia, Refill, Refills, Needs referral, Needs referral, Needs referral, annual visit, Refills, refill, f/u visit,blood in stool Insurance Providers Health Insurance Type Health Plan Insurance Address Health Plan Insurance Phone Health Plan Insurance Name Health Plan Coverage Dates Member ID Patient Relationship to Subscriber Patient Address Patient Phone Patient Name Patient Date of Subscriber ID Subscriber Name Subscriber Date of Group No [facility] [employer] [facility] [address] [facility] [id number] [employer] self Bianka Iyer [id number]
[2023-01-25 12:20] LABS: Hematocrit 40.2 % (37.0-47.0); Hemoglobin 13.4 g/dl (12.0-16.0); Mean Corpuscular HGB Conc 33.3 g/dl (31.0-35.0); Mean Corpuscular Hemoglobin 31.7 pg (27.0-33.0); Mean Platelet Volume 8.8 fL (9.4-12.3); Platelet Count 289 X10*3/uL (160-400); Red Blood Count 4.23 X10*6/uL (4.20-5.50); Red Cell Distribution Width 13.4 % (11.0-16.0); White Blood Count 14.2 X10*3/uL (4.8-10.8)
--- NOTE | 2023-01-25 12:24 | ED_ITS ---
HPI - Abdominal Pain General Chief Complaint: Abdominal Pain Stated Complaint: quest kidney stone Time Seen by Provider: 01/25/23 12:20 Source: patient, RN notes reviewed and old records reviewed Mode of arrival: ambulatory History of Present Illness HPI narrative: 67-year-old female with past medical history of renal stones presenting to the ED complaining of left flank pain radiating to lower abdomen x few weeks, worsening today with associated nausea and vomiting. Denies fever, chills, diarrhea, dysuria/hematuria. Admits pain feels similar to prior renal stones MD elicited complaint: abdominal pain and flank pain Related Data Home Medications Medication Instructions Recorded Confirmed levothyroxine 100 mcg tablet 100 mcg PO DAILY 01/01/21 01/01/21 (Euthyrox) simvastatin 20 mg tablet 20 mg PO BEDTIME 01/01/21 01/01/21 Previous Rx's Medication Instructions Recorded hydrocodone 5 mg-acetaminophen 325 1 tab PO Q8H PRN pain, severe 3 01/25/23 mg tablet days #5 tabs ketorolac 10 mg tablet 10 mg PO TID PRN pain 5 days #15 01/25/23 tabs prednisone 20 mg tablet 20 mg PO DAILY 5 days #5 tabs 01/25/23 tamsulosin 0.4 mg capsule (Flomax) 0.4 mg PO DAILY #14 caps 01/25/23 Allergies Allergy/AdvReac Type Severity Reaction Status Date / Time No Known Allergies Allergy Verified 01/01/21 10:00 Review of Systems Review of Systems Constitutional: No Fever, No Chills, No Fatigue, No Malaise ENT/Mouth: No Ear Pain, No Nasal Congestion,No sore throat, No Rhinorrhea, No Swallowing Difficulty Eyes: No Eye Pain, No Swelling, No Redness,No Vision Changes Cardiovascular: No Chest Pain, No SOB, No Edema, No Palpitations Respiratory: No Cough, No Sputum, No Wheezing, No Smoke Exposure, No Dyspnea Gastrointestinal: + Nausea, + Vomiting, No Diarrhea, No Constipation,+ Abdominal pain Genitourinary: No Dysuria, No Urinary Frequency, No Hematuria, No Urinary Incontinence/retention, No Urgency, + Flank Pain Musculoskeletal: No joint pain, No Myalgias, No Joint Swelling Skin: No Skin Lesions, No rash Neuro: No Weakness, No Dizziness, No Headache Yes all other systems are reviewed and are negative Constitutional: Reports as per HPI [facility] Past Medical History Attestation statement: The following information was validated with the patient. Source: old records reviewed Medical History Elevated cholesterol Thyroid disease Surgical History H/O colonoscopy Social History Social History Advance Directives: Yes Advance Directives Information Provided: No Advance Directives on File: No Physical Exam ED Vital Signs: Vital Signs - 24 hr 01/25/23 11:58 01/25/23 12:54 01/25/23 15:18 Temperature 98.4 F 97.7 F 97.7 F Pulse Rate 61 55 61 Respiratory Rate 20 17 17 Blood Pressure 133/83 137/69 122/58 L Pulse Oximetry 99 92 97 Oxygen Delivery Method Room Air Room Air Room Air BMI result Body Mass Index 26.6 Const General: cooperative, healthy appearing and no acute distress Orientation/consciousness: patient oriented x3 Limitations: no limitations HENMT Head: Yes normal to inspection and Yes atraumatic Ears: hearing grossly normal bilaterally General nose exam: Normal external nose present Face and sinus: Yes normal facial exam Eyes General: appearance normal, both eyes and all related structures EOM: EOMs intact bilaterally Neck Neck: Yes normal visual inspection and Yes no meningeal signs Resp Effort & Inspection: normal respiratory effort and no respiratory distress Cardio Rate: regular rate Heart sounds: S1 normal heart sound present and S2 normal heart sound present GI Inspection: Yes normal to inspection Palpation (GI): Soft to palpation, nontender, no guarding and not rigid General: Yes CVA tenderness on the left Back/Spine/Pelvis Back: CVA tenderness Skin Rashes: no rashes Wounds: no wounds Neuro General: patient oriented x3, tone normal and no meningeal signs Gait exam (Neuro): Normal gait present Extrem General: Yes normal to inspection Course Course Course Narrative: -[id number]--leukocytosis of 14.2. T bilirubin chronically elevated, labs otherwise reassuring > on re-evaluation patient appears more comfortable, pain controlled after 2 doses of IV Toradol and morphine CT abdomen pelvis wo IV con IMPRESSION: 1.? 5 mm nonobstructive radiopaque calculi left proximal ureter with mild hydronephrosis and peripelvic stranding. 2.? Nonobstructive 2 mm radiopaque calculi upper and midpole left kidney. 3.? Mild constipation. ? Fleischner guidelines were followed. >> will consult Urology, Dr. Haines > recommended Flomax and prednisone 20 mg x 5 days if pain controlled/patient tolerating p.o. -UA with blood to/RBCs, not infected. Patient's pain has remained under control. Plan to DC home with close Urology follow-up. Medical Decision Making Medical Decision Making [facility] Narrative: 67-year-old female with past medical history of renal stones presenting to the ED complaining of left flank pain radiating to lower abdomen x few weeks, worsening today with associated nausea and vomiting. On exam vital signs stable, NAD, appears uncomfortable, abdomen soft/nontender, left CVA tenderness noted. Concern for renal stone/pyelo. Rule out UTI. Lower suspicion for diverticulitis/appendicitis or pancreatitis/cholecystitis/lithiasis Plan: Labs, UA, CT, IVF, pain control, reassess Please refer to course for remaining clinical decision making, interpretation of labs/imaging results, and discussions with consultants and/or family members. Differential Diagnosis Differential Diagnoses: The differential diagnosis associated with the p resentation includes As above Admission/Observation Consideration of admission/observation: Escalation of care including admiss ion/observation considered Lab Data [facility] Lab Attestation statement: I reviewed the patient's lab results. 01/25/23 12:16 01/25/23 12:16 Labs: Lab Results 01/25/23 01/25/23 01/25/23 Range/Units 12:16 12:16 14:45 WBC 14.2 H (4.8-10.8) X10*3/uL RBC 4.23 (4.20-5.50) X10*6/uL Hgb 13.4 (12.0-16.0) g/dl Hct 40.2 (37.0-47.0) % MCV 95.0 (80.0-98.0) fL MCH 31.7 (27.0-33.0) pg MCHC 33.3 (31.0-35.0) g/dl RDW 13.4 (11.0-16.0) % Plt Count 289 (160-400) X10*3/uL MPV 8.8 L (9.4-12.3) fL Absolute Nucleated RBC 0.000 (0.0-0.012) X10*3/uL Nucleated RBC % (auto) 0.0 (0.0-0.2) /100WBC Sodium 135 (135-145) mmol/L Potassium 3.9 (3.3-5.1) mmol/L Chloride 101 (96-108) mmol/L Carbon Dioxide 25 (22-29) mmol/L Anion Gap 13 (12-20) BUN 14 (9-16) mg/dL Creatinine 0.85 (0.5-1.4) mg/dL Estim Creat Clear Calc 71.1 Estimated GFR > 60 Random Glucose 120 H (60-115) mg/dL Calcium 9.7 (8.4-10.2) mg/dL Total Bilirubin 1.8 H (0.0-1.0) mg/dL Direct Bilirubin 0.3 (0.0-0.5) mg/dL AST 21 (5-31) U/L ALT 27 (0-31) U/L Alkaline Phosphatase 69 (39-117) U/L Total Protein 7.9 (6.5-8.0) g/dL Albumin 4.5 (3.5-5.0) g/dL Lipase 48 (8-78) U/L Urine Color Yellow Urine Appearance Clear Urine pH 7.5 (5.0-9.0) Ur Specific [place] 1.020 (1.005-1.025) Urine Protein 30 (1+) H (Neg-Trace) mg/dL Urine Glucose (UA) Negative (Negative) mg/dL Urine Ketones Trace (Negative) mg/dL Urine Blood Large (3+) H (Negative) Urine Nitrite Negative (Negative) Ur Leukocyte Esterase Trace H (Negative) Urine RBC >20 H (0-2) /HPF Urine WBC 0-5 (0-5) /HPF Ur Squamous Epith Cells 0-2 (0-2) /HPF Urine Bacteria None Seen (None Seen) Hyaline Casts 0-2 (0-2) /LPF Radiology Impression Discussion of test interpretation with radiology: I have reviewed the radiologist's reading. External Record Review External record reviewed: Inpatient record, Office record, Outpatient record, Prior outpatient labs, Prior outpatient radiology, Primary care record and Outside ED record Tests considered The following testing was considered but not selected: As above Medications Administered Discontinued Medications Generic Name Dose Route Start Last Admin Trade Name Vinayakq PRN Reason Stop Dose Admin Ketorolac Tromethamine 15 mg 01/25/23 12:29 01/25/23 12:47 Ketorolac Tromethamine 15 Mg/Ml Vial IVPUSH 01/25/23 12:30 15 mg ONCE ONE Administration Ketorolac Tromethamine 15 mg 01/25/23 13:27 01/25/23 13:34 Ketorolac Tromethamine 15 Mg/Ml Vial IVPUSH 01/25/23 13:28 15 mg ONCE ONE Administration Morphine Sulfate 2 mg 01/25/23 13:27 01/25/23 13:34 Morphine Sulfate 2 Mg/Ml Cartridge IVPUSH 01/25/23 13:28 2 mg ONCE ONE Administration Protocol Ondansetron HCl 4 mg 01/25/23 12:29 01/25/23 12:48 Ondansetron Hcl 4 Mg/2 Ml Vial IVPUSH 01/25/23 12:30 4 mg ONCE ONE Administration Discharge Plan Discharge Clinical Impression: Calculus of proximal left ureter Patient Disposition: Home, Self-Care Instructions: Ureteral Stones (ED) Additional Instructions: You have a 5 mm nonobstructing stone in her left proximal ureter Please drink plenty of fluids at home. Flomax will help dilate the ureter Ketorolac is an anti-inflammatory pain medication, take with food [place] is an opiate pain medication, take only when pain is severe for the next 3 days Prednisone is a steroid Please in close follow-up with Urology If symptoms persist or worsen, pain becomes unbearable, you developed fever, persistent nausea/vomiting return to the ED Prescriptions: New tamsulosin [Flomax] 0.4 mg capsule 0.4 mg PO DAILY Qty: 14 0RF prednisone 20 mg tablet 20 mg PO DAILY 5 Days Qty: 5 0RF ketorolac 10 mg tablet 10 mg PO TID PRN (Reason: pain) 5 Days Qty: 15 0RF hydrocodone-acetaminophen 5-325 mg tablet 1 tab PO Q8H PRN (Reason: pain, severe) 3 Days Qty: 5 0RF Rx Instructions: Partial Fill upon patient request. No Action levothyroxine [Euthyrox] 100 mcg tablet 100 mcg PO DAILY simvastatin 20 mg tablet 20 mg PO BEDTIME Referrals: [facility] [Provider Group] - 1 week
[2023-01-25 12:40] LABS: Anion Gap 13 (12-20); Blood Urea Nitrogen 14 mg/dL (9-16); Calcium 9.7 mg/dL (8.4-10.2); Carbon Dioxide 25 mmol/L (22-29); Chloride 101 mmol/L (96-108); Creatinine Clr Calc Pharmacy 71.1; Estimated Glomerular Filt Rate > 60; Glucose Random 120 mg/dL (60-115); Potassium 3.9 mmol/L (3.3-5.1); Sodium 135 mmol/L (135-145)
[2023-01-25] MEDS: Ketorolac Tromethamine 15 MG/ML VIAL IVPUSH ×2 (12:47→13:34)
[2023-01-25] MEDS: ondansetron HCL 4 MG/2 ML VIAL IVPUSH (12:48)
[2023-01-25 12:54] VITALS: BP 137/69; PULSE 55; RESP 17; TEMP 36.5; O2SAT 92
[2023-01-25 13:13] LABS: Alanine Aminotransferase 27 U/L (0-31); Albumin Level 4.5 g/dL (3.5-5.0); Alkaline Phosphatase 69 U/L (39-117); Aspartate Amino Transferase 21 U/L (5-31); Bilirubin Direct 0.3 mg/dL (0.0-0.5); Bilirubin Total 1.8 mg/dL (0.0-1.0); Lipase 48 U/L (8-78); Total Protein 7.9 g/dL (6.5-8.0)
[2023-01-25] MEDS: Morphine Sulfate 2 MG/ML CARTRIDGE IVPUSH (13:34)
[2023-01-25 14:52] LABS: Appearance Urine Clear; Color Urine Yellow; Glucose Urine UA Negative (Negative); Leukocyte Esterase Urine Trace (Negative); Nitrite Urine Negative (Negative); PH 7.5 (5.0-9.0); UMIC TRIGGER UACC YES; Urine Blood Large (3+) (Negative); Urine Ketones Trace mg/dL (Negative); Urine Protein 30 (1+) mg/dL (Neg-Trace)
[2023-01-25 14:57] LABS: Bacteria Urine None Seen (None Seen); Hyaline Casts Urine 0-2 /LPF (0-2); RBC Urine >20 /HPF (0-2); Squamous Epithelial Cell Urine 0-2 /HPF (0-2); WBC Urine 0-5 /HPF (0-5)
[2023-01-25 15:18] VITALS: BP 122/58; PULSE 61; RESP 17; TEMP 36.5; O2SAT 97
== END 2023-01-25 16:00 | disposition home or self-care (01) ==
PROVIDERS: Physician Assistant; Emergency Provider Internal Medicine; PCP Internal Medicine
DX: N13.2 Hydronephrosis with renal and ureteral calculous obstruction (principal); R11.2 Nausea with vomiting, unspecified; E78.5 Hyperlipidemia, unspecified; Z79.899 Other long term (current) drug therapy; Z79.02 Long term (current) use of antithrombotics/antiplatelets
CPT/HCPCS: 36415; 74176; 80048; 80076; 81001; 83690; 85027; 96374; 96375; 96376; 99284; 99285; J1885; J2270; J2405

== ENCOUNTER → 2023-02-04 15:10 | Outpatient (BNVA) | payer BC, SELFPAY | PROVIDERS: PCP Internal Medicine; Visit Provider Nurse Practitioner Family ==

== ENCOUNTER 2023-02-17 08:07 | Outpatient (REF) | payer BC, SELFPAY ==
--- NOTE | ~2023-02-17 | US_ITS ---
EXAMINATION: US RETROPERITONEAL LIMITED (RENAL ONLY) CLINICAL INFORMATION: Kidney stone. COMPARISON: Previous CT of the abdomen and pelvis December 2022 TECHNIQUE: Grayscale and color imaging of the kidneys FINDINGS: RIGHT KIDNEY: 11 x 4 x 4 cm (SAG x AP x TRV). The kidney is normal in size, contour, and echogenicity. Renal cortical thickness is normal. No calculi or focal parenchymal lesions. No hydronephrosis. LEFT KIDNEY: 12.5 x 5 x 4 cm (SAG x AP x TRV). The kidney is normal in size, contour, and echogenicity. Renal cortical thickness is normal. There is moderate left hydronephrosis. This is increased compared to previous CT scan. There is echogenic material seen in the calyces. Differential would include blood clot, infection and sloughed papilla. Neoplasm is considered less likely given appearance in all the visualized calyces. Stone is considered unlikely due to lack of acoustic shadowing. The visualized left is dilated. Left ureteral jet is seen in the bladder. The US/US renal BI IMPRESSION: Moderate left hydronephrosis increased from CT December 2022. Dilatation of the visualized left ureter. Patent left ureteral jet in the bladder. Echogenic densities seen in the left renal calyces. Differential would include hemorrhage, infection and sloughed papilla. Neoplasm and stone considered less likely. Clinical correlation recommended. Findings will be communicated by the [place] work flow tape coater.
== END 2023-02-17 08:08 | disposition home or self-care (01) ==
LOC: HO.US 08:07
PROVIDERS: PCP Internal Medicine; Visit Provider Nurse Practitioner Family
DX: N20.0 Calculus of kidney (principal)
CPT/HCPCS: 76775

== ENCOUNTER → 2023-02-21 10:20 | Outpatient (BNVA) | payer BC, SELFPAY | PROVIDERS: PCP Internal Medicine; Visit Provider Nurse Practitioner Family ==

== ENCOUNTER 2023-02-24 14:09 | Outpatient (REF) | payer BC, SELFPAY ==
--- NOTE | ~2023-02-24 | US_ITS ---
EXAMINATION: US RETROPERITONEAL LIMITED (RENAL ONLY) CLINICAL INFORMATION: Follow-up left-sided hydronephrosis and stone.. COMPARISON: Renal ultrasound 02/17/2023. CT scan abdomen pelvis 01/25/2023 TECHNIQUE: Grayscale ultrasound and color Doppler exam of both kidneys FINDINGS: RIGHT KIDNEY: 11.4 x 4 by 5.7 cm (SAG x AP x TRV). The kidney is normal in size, contour, and echogenicity. Renal cortical thickness is normal. No calculi or focal parenchymal lesions. No hydronephrosis. LEFT KIDNEY: 12.2 x 4.9 x 4.5 cm (SAG x AP x TRV). The kidney is normal in size, contour, and echogenicity. Renal cortical thickness is normal. No calculi or focal parenchymal lesions. No hydronephrosis. The previously seen hydronephrosis on the exam of 02/17/2023 has resolved US/US renal BI IMPRESSION: Normal ultrasound of the kidneys. No hydronephrosis.
== END 2023-02-24 14:10 | disposition home or self-care (01) ==
LOC: HO.US 14:09
PROVIDERS: PCP Internal Medicine; Visit Provider Internal Medicine
DX: N20.0 Calculus of kidney (principal); N18.30 Chronic kidney disease, stage 3 unspecified
CPT/HCPCS: 76775

== ENCOUNTER 2023-06-04 07:42 | Outpatient (REF) | payer BC, SELFPAY ==
--- NOTE | ~2023-06-04 | MM_ITS ---
EXAMINATION: BONE DENSITOMETRY CLINICAL INDICATION: Osteoporosis. COMPARISON: Previous BD dated 09/07/2019 and baseline BD dated 07/07/2015. TECHNIQUE: Using a [employer] DXA System (software version: 13.1) manufactured by [employer], dual-energy x-ray absorptiometry was performed of the lumbar spine and left hip. The images are of good technical quality. Summary results are attached. FINDINGS: LEFT FEMUR, NECK: Current: BMD 0.692 g/cm2, Z-score -1.2, T-score -2.5, osteoporosis. Prior: BMD 0.695 g/cm2. Baseline: BMD 0.696 g/cm2. LEFT FEMUR, TOTAL: Current: BMD 0.803 g/cm2, Z-score -0.6, T-score -1.6, osteopenia, 0.6% increase from previous, 0.4% increase from baseline (<5% change is not significant). Prior: BMD 0.798 g/cm2. Baseline: BMD 0.800 g/cm2. AP SPINE L1-L4: Current: BMD 0.894 g/cm2, Z-score -1.2, T-score -2.4, osteopenia, 4.2% decrease from previous, 0.9% decrease from baseline (<5% change is not significant). Prior: BMD 0.933 g/cm2. Baseline: BMD 0.902 g/cm2. IDENTIFIED RISK FACTORS: Early menopause, secondary osteoporosis. HISTORY OF FRACTURE: None listed. MEDICATIONS: Vitamin D. MM/XR DEXA axial skeleton IMPRESSION: 1. DIAGNOSIS: Osteoporosis based on the lowest T-score value of -2.5 in the femoral neck applying World Health Organization criteria. 2. 10-YEAR FRACTURE RISK PREDICTION, FRAX: According to the guidelines, FRAX calculation should only be performed on patients in the osteopenia bone density category. Therefore, FRAX was not performed on this patient. 3. Treatment Recommendations: NOF guidelines recommend consideration for treatment in postmenopausal women and men age 50 and older presenting with the following: -A hip or vertebral (clinical or morphometric) fracture. -T-score less than or equal to -2.5 at the femoral neck or spine after appropriate evaluation to exclude secondary causes. -Low bone mass at the hip or spine and a 10-year fracture probability by FRAX of greater than or equal to 3% for hip fracture or greater than or equal to 20% for major osteoporotic fracture based on the [place] adapted WHO algorithm. 4. Other Recommendations: All treatment decisions require clinical judgment and consideration of individual patient factors, including patient preferences, comorbidities, previous drug use, risk factors not captured in the FRAX model (e.g. frailty, falls, vitamin D deficiency, increased bone turnover, interval significant decline in bone density) and possible under or overestimation of fracture risk by FRAX. Additional medical evaluation for secondary cause of low bone mineral density may be appropriate. FUTURE SCAN RECOMMENDATION: People with diagnosed cases of osteoporosis or at high risk for fracture should have regular bone mineral density tests. For patients eligible for Medicare, routine testing is allowed once every 2 years. The testing frequency can be increased to one year for patients who have rapidly progressing disease, those who are receiving or discontinuing medical therapy to restore bone mass, or have additional risk factors.
--- NOTE | ~2023-06-04 | MM_ITS ---
EXAMINATION: MM SCREENING DIGITAL BREAST TOMOSYNTHESIS, BILATERAL CLINICAL INFORMATION: Screening. Asymptomatic. COMPARISON: Mammography: This study is compared with prior exams dating back to 2016. TECHNIQUE: Digital breast tomosynthesis is performed in both the craniocaudal and mediolateral oblique views along with computer-aided detection (CAD). Synthesized 2D images are generated from the tomosynthesis. FINDINGS: The breasts are heterogeneously dense, which may obscure small masses (ACR BI-RADS breast composition Category c). There are no significant masses, abnormal calcifications, or other abnormalities. There is a coarse, benign calcification in the superior aspect of the left breast parts counter representative of an involuting fibroadenoma. MM/MM tomosynthesis screening BI IMPRESSION: No mammographic evidence of malignancy. ASSESSMENT: BI-RADS BI-RADS 2 - Benign Findings RECOMMENDATION: Routine annual mammography screening. 1 year F/U This examination should not preclude the clinical evaluation of a suspicious palpable abnormality. This patient's information was entered into a reminder system with a target due date for their next mammogram.
== END 2023-06-04 07:43 | disposition home or self-care (01) ==
LOC: HO.MAMMO 07:42
PROVIDERS: Visit Provider Internal Medicine
DX: Z12.31 Encounter for screening mammogram for malignant neoplasm of breast (principal); Z13.820 Encounter for screening for osteoporosis; M81.0 Age-related osteoporosis without current pathological fracture; Z78.0 Asymptomatic menopausal state
CPT/HCPCS: 77063; 77067; 77080

== ENCOUNTER → 2023-06-04 08:00 | Outpatient (BNV) | payer BC, SELFPAY | PROVIDERS: Visit Provider Radiology Diagnostic Radiology | DX: Z12.31 Encounter for screening mammogram for malignant neoplasm of breast (principal) | CPT/HCPCS: 77063; 77067 ==

== ENCOUNTER 2024-06-12 09:52 | Outpatient (REF) | payer BC, SELFPAY ==
--- NOTE | ~2024-06-12 | MM_ITS ---
EXAMINATION: MM SCREENING DIGITAL BREAST TOMOSYNTHESIS, BILATERAL CLINICAL INFORMATION: Screening. Asymptomatic. COMPARISON: Mammography: Comparison is made with available priors TECHNIQUE: Digital breast mammography with tomosynthesis is performed in both the craniocaudal and mediolateral oblique views along with computer-aided detection (CAD). FINDINGS: The breasts are heterogeneously dense, which may obscure small masses (ACR BI-RADS breast composition Category c). There are no significant masses, abnormal calcifications, or other abnormalities. MM/MM tomosynthesis screening BI IMPRESSION: No mammographic evidence of malignancy. ASSESSMENT: BI-RADS BI-RADS 1 - Negative RECOMMENDATION: Routine annual mammography screening. 1 year F/U This examination should not preclude the clinical evaluation of a suspicious palpable abnormality. This patient's information was entered into a reminder system with a target due date for their next mammogram. Electronically signed by: Gianna Green DO 06/25/2024 10:08 AM [facility]
== END 2024-06-12 09:53 | disposition home or self-care (01) ==
LOC: HO.MAMMO 09:52
PROVIDERS: PCP Internal Medicine; Visit Provider Internal Medicine
DX: Z12.31 Encounter for screening mammogram for malignant neoplasm of breast (principal)
CPT/HCPCS: 77063; 77067

== ENCOUNTER → 2024-06-12 10:00 | Outpatient (BNV) | payer BC, SELFPAY | PROVIDERS: PCP Internal Medicine; Visit Provider Internal Medicine | DX: Z12.31 Encounter for screening mammogram for malignant neoplasm of breast (principal) | CPT/HCPCS: 77063; 77067 ==

== ENCOUNTER 2025-06-18 09:46 | Outpatient (REF) | payer BC, SELFPAY ==
--- NOTE | ~2025-06-18 | MM_ITS ---
EXAMINATION: MM SCREENING DIGITAL BREAST TOMOSYNTHESIS, BILATERAL CLINICAL INFORMATION: Screening. Asymptomatic. COMPARISON: Comparison made to multiple prior, most recent June 12, 2024, and most remote November 07, 2017. TECHNIQUE: Digital breast tomosynthesis is performed in mediolateral oblique and craniocaudal views along with computer-aided detection (CAD). Synthesized 2D images are generated from the tomosynthesis. FINDINGS: BREAST COMPOSITION: The breasts are heterogeneously dense, which may obscure small masses. BILATERAL BREASTS: No significant masses, suspicious calcifications or other abnormalities are seen in either breast. MM/MM tomosynthesis screening BI IMPRESSION: BILATERAL BREASTS: Negative, no mammographic evidence of malignancy. Normal interval follow-up is recommended in 12 months. ASSESSMENT: BI-RADS: Category 1: Negative RECOMMENDATION: Routine annual mammography screening. FOLLOW-UP: 1 year F/U This examination should not preclude the clinical evaluation of a suspicious palpable abnormality. This patient's information was entered into a reminder system with a target due date for their next mammogram. Electronically signed by: Taylor Polo MD 06/20/2025 08:12 PM EDT
== END 2025-06-18 09:47 | disposition home or self-care (01) ==
LOC: HO.MAMMO 09:46
PROVIDERS: PCP Internal Medicine; Visit Provider Internal Medicine
DX: Z12.31 Encounter for screening mammogram for malignant neoplasm of breast (principal)
CPT/HCPCS: 77063; 77067

== ENCOUNTER → 2025-06-18 10:00 | Outpatient (BNV) | payer BC, SELFPAY | PROVIDERS: PCP Internal Medicine; Visit Provider Radiology Body Imaging | DX: Z12.31 Encounter for screening mammogram for malignant neoplasm of breast (principal) | CPT/HCPCS: 77063; 77067 ==